=== PATIENT | male | born 1975 | race Two or more races ===

== ENCOUNTER 2020-10-09 19:28 | Emergency (ER) | payer MEDICAID, OTHER ==
[~2020-10-09] VITALS: Ht 172.7 cm; Wt 115.7 kg
[2020-10-10 01:50] VITALS: BP 147/78
== END 2020-10-10 02:03 | disposition home or self-care (01) ==
LOC: ER 19:36
DX: L02.414 Cutaneous abscess of left upper limb (principal)

== ENCOUNTER 2022-07-02 19:25 | Emergency (ER) | payer MEDICAID ==
[~2022-07-02] VITALS: Ht 175.3 cm; Wt 104.4 kg
[2022-07-02] MEDS ORDERED: cefTRIAXone SOD 1,000 MG VL IM ONE (21:00)
[2022-07-02] MEDS ORDERED: KETOROLAC TROMETH 30 MG/ML 1ML VIAL IM ONE (21:00)
[2022-07-02] MEDS ORDERED: BACDST PO (21:15)
[2022-07-02] MEDS ORDERED: IBUP800T26 PO (21:15)
[2022-07-02 21:40] VITALS: BP 179/80
== END 2022-07-02 21:42 | disposition home or self-care (01) ==
LOC: ER 19:27
DX: L02.214 Cutaneous abscess of groin (principal)
CPT/HCPCS: 96372; 99284; J0696; J1885